=== PATIENT | female | born 1995 | race Caucasian/White ===

== ENCOUNTER 2018-01-08 10:29 | Emergency (ER) | payer MEDICAID ==
[~2018-01-08] VITALS: Ht 165.1 cm; Wt 52.0 kg
[2018-01-08 10:50] VITALS: BP 108/68
== END 2018-01-08 12:24 | disposition home or self-care (01) ==
LOC: ER 10:30
DX: F15.90 Other stimulant use, unspecified, uncomplicated (principal)
CPT/HCPCS: 99281

== ENCOUNTER 2018-02-24 05:44 | Emergency (ER) | payer MEDICAID ==
[~2018-02-24] VITALS: Ht 165.1 cm; Wt 59.0 kg
[~2018-02-24 05:44] MED LIST: METH4TAB81 PO; TRAZ-218 PO; TRIA15OI9 TOP
[2018-02-24 05:47] VITALS: BP 131/95
[2018-02-24 06:19] LABS: URINE HCG NEGATIVE (NEG)
[2018-02-24 06:28] LABS: CLARITY,URINE CLOUDY (Clear); COLOR,URINE BROWN (Yellow); GLUCOSE, URINE 250 mg/dl (Neg); KETONES,URINE TRACE mg/dl (Neg); LEUKOCYTE ESTERASE ,URINE SMALL (Neg); NITRITES, URINE POSITIVE (Neg); OCCULT BLOOD,URINE LARGE (Neg); PH,URINE 6.5 (4.8-8.0); PROTEIN,URINE >=300 mg/dl (Neg)
[2018-02-24 06:36] LABS: UA COLLECTION TYPE CLN CATCH MIDSTREAM
[2018-02-24 06:37] LABS: RBC,URINE TNTC /HPF (0-2); WBC,URINE TNTC /HPF (0-4)
[2018-02-24 06:39] LABS: BACTERIA,URINE 4+ /HPF (Neg); SQUAMOUS EPITHELIAL CELL,UR MANY /LPF (FEW)
[2018-02-24] MEDS ORDERED: PHEN-716 PO (06:39)
[2018-02-24] MEDS ORDERED: SULF1TAB49 PO (06:39)
[2018-02-24] MEDS ORDERED: sulfamethoxazole/trimethoprim DS (800/160mg) tablet PO ONE (06:40)
[2018-02-24] MEDS ORDERED: phenazopyridine 100mg tablet PO ONE (06:40)
== END 2018-02-24 07:03 | disposition home or self-care (01) ==
LOC: ER 05:45
DX: N39.0 Urinary tract infection, site not specified (principal); F15.90 Other stimulant use, unspecified, uncomplicated; Z79.899 Other long term (current) drug therapy
CPT/HCPCS: 81001; 81025; 99283

== ENCOUNTER 2018-10-11 17:14 | Emergency (ER) | payer MEDICAID ==
[~2018-10-11] VITALS: Ht 165.1 cm; Wt 64.0 kg
[~2018-10-11 17:14] MED LIST changes: +PHEN-716 PO
[2018-10-11 17:23] VITALS: BP 115/84
[2018-10-11 17:56] LABS: BASOPHILS % (AUTO) 0.2 % (0-1); EOSINOPHILS # (AUTO) 0.4 X10'3 (0-0.9); EOSINOPHILS % (AUTO) 2.8 % (0-6); HEMATOCRIT 39.4 % (35.0-45.0); HEMOGLOBIN 12.9 g/dl (12.0-16.0); LYMPHOCYTES # (AUTO) 2.1 X10'3 (1.1-4.8); LYMPHOCYTES % (AUTO) 14.7 % (21-51); MEAN CORPUSCULAR HEMOGLOBIN 26.7 PG (27.0-31.0); MEAN CORPUSCULAR HGB CONC 32.8 g/dL (33.0-36.5); MEAN CORPUSCULAR VOLUME 81.5 FL (78-98); MEAN PLATELET VOLUME 7.6 FL (7.4-10.4); MONOCYTES % (AUTO) 7.3 % (2-12); NEUTROPHILS # (AUTO) 10.6 X10'3 (1.8-7.7); PLATELET COUNT 354 X10'3 (140-440); RED BLOOD COUNT 4.83 X10'6 (4.20-5.60); RED CELL DISTRIBUTION WIDTH 13.3 % (11.5-14.5); WHITE BLOOD COUNT 14.1 X10'3 (4.5-11.0)
[2018-10-11 18:08] LABS: ALANINE AMINOTRANSFERASE 17 U/L (12-78); ALBUMIN 3.2 G/DL (3.4-5.0); ALBUMIN/GLOBULIN RATIO 0.9 (1.1-1.5); ALKALINE PHOSPHATASE 78 IU/L (46-116); ANION GAP 2 (8-16); ASPARTATE AMINO TRANSFERASE 11 U/L (10-37); BILIRUBIN,TOTAL 0.3 MG/DL (0.1-1.0); BLOOD UREA NITROGEN 13 MG/DL (7-18); BUN/CREATININE RATIO 16.5 (6.6-38.0); CALCIUM 8.2 MG/DL (8.5-10.1); CHLORIDE 103 MMOL/L (99-107); CREATININE 0.79 MG/DL (0.40-0.90); GLUCOSE 108 MG/DL (70-104); POTASSIUM 3.9 MMOL/L (3.5-5.1); SODIUM 136 MMOL/L (135-145); TOTAL CARBON DIOXIDE 31.3 MMOL/L (24-32); TOTAL PROTEIN 6.6 G/DL (6.4-8.2); eGFR 89 ML/MIN
[2018-10-11] MEDS ORDERED: LORazepam 2 mg/ml vial IV ONE (18:30)
[2018-10-11] MEDS ORDERED: ondansetron 4mg rapidly disintigrating tab PO ONE (18:30)
[2018-10-11 19:21] LABS: URINE HCG NEGATIVE (NEG)
[2018-10-11 19:29] LABS: CLARITY,URINE CLEAR (Clear); COLOR,URINE YELLOW (Yellow); GLUCOSE, URINE NEGATIVE (Neg); KETONES,URINE NEGATIVE (Neg); LEUKOCYTE ESTERASE ,URINE NEGATIVE (Neg); NITRITES, URINE NEGATIVE (Neg); OCCULT BLOOD,URINE NEGATIVE (Neg); PROTEIN,URINE NEGATIVE (Neg); UROBILINOGEN,URINE 0.2 E.U/dL (0.2-1.0)
[2018-10-11 19:34] LABS: UA COLLECTION TYPE CLN CATCH MIDSTREAM
[2018-10-11] MEDS ORDERED: ONDA4TAB6 PO (19:41)
[2018-10-11] MEDS ORDERED: LORA-269 PO (19:41)
== END 2018-10-11 20:11 | disposition home or self-care (01) ==
LOC: ER 17:15
DX: F41.9 Anxiety disorder, unspecified (principal); A08.39 Other viral enteritis; F15.90 Other stimulant use, unspecified, uncomplicated; Z79.899 Other long term (current) drug therapy
CPT/HCPCS: 36415; 80053; 81003; 81025; 85025; 96374; 99284; J2060; 99283

== ENCOUNTER 2018-10-16 20:32 | Emergency (ER) | payer MEDICAID ==
[~2018-10-16] VITALS: Ht 165.1 cm; Wt 55.9 kg
[~2018-10-16 20:32] MED LIST changes: +LORA-269 PO; +ONDA4TAB6 PO
[2018-10-16] MEDS ORDERED: mag hydrox/Alum hydrox/simeth 30ml oral suspension PO ONE (23:20)
[2018-10-16] MEDS ORDERED: famotidine 20mg tablet PO ONE (23:20)
[2018-10-16] MEDS ORDERED: LIDOcaine Viscous 15ml cup PO ONE (23:20)
[2018-10-16 23:34] LABS: BASOPHILS % (AUTO) 0.2 % (0-1); EOSINOPHILS # (AUTO) 0.9 X10'3 (0-0.9); EOSINOPHILS % (AUTO) 8.1 % (0-6); HEMATOCRIT 32.9 % (35.0-45.0); HEMOGLOBIN 10.9 g/dl (12.0-16.0); LYMPHOCYTES # (AUTO) 1.6 X10'3 (1.1-4.8); LYMPHOCYTES % (AUTO) 14.6 % (21-51); MEAN CORPUSCULAR HGB CONC 33.2 g/dL (33.0-36.5); MEAN CORPUSCULAR VOLUME 81.4 FL (78-98); MEAN PLATELET VOLUME 7.4 FL (7.4-10.4); MONOCYTES # (AUTO) 0.7 X10'3 (0-0.9); MONOCYTES % (AUTO) 6.2 % (2-12); NEUTROPHILS # (AUTO) 7.9 X10'3 (1.8-7.7); NEUTROPHILS % (AUTO) 70.9 % (42-75); PLATELET COUNT 300 X10'3 (140-440); RED BLOOD COUNT 4.04 X10'6 (4.20-5.60); RED CELL DISTRIBUTION WIDTH 13.4 % (11.5-14.5); WHITE BLOOD COUNT 11.2 X10'3 (4.5-11.0)
[2018-10-16 23:50] LABS: ALANINE AMINOTRANSFERASE 20 U/L (12-78); ALBUMIN 2.6 G/DL (3.4-5.0); ALBUMIN/GLOBULIN RATIO 0.9 (1.1-1.5); ALKALINE PHOSPHATASE 96 IU/L (46-116); ANION GAP 6 (8-16); ASPARTATE AMINO TRANSFERASE 13 U/L (10-37); BILIRUBIN,TOTAL 0.1 MG/DL (0.1-1.0); BLOOD UREA NITROGEN 12 MG/DL (7-18); BUN/CREATININE RATIO 14.8 (6.6-38.0); CALCIUM 8.2 MG/DL (8.5-10.1); CHLORIDE 106 MMOL/L (99-107); CREATININE 0.81 MG/DL (0.40-0.90); GLUCOSE 111 MG/DL (70-104); LIPASE 71 U/L (73-393); SODIUM 137 MMOL/L (135-145); TOTAL CARBON DIOXIDE 24.8 MMOL/L (24-32); TOTAL PROTEIN 5.4 G/DL (6.4-8.2); eGFR 87 ML/MIN
[2018-10-17] MEDS ORDERED: PANT-47 PO (00:25)
[2018-10-17 00:42] VITALS: BP 123/56
== END 2018-10-17 00:45 | disposition home or self-care (01) ==
LOC: ER 20:33
DX: K21.9 Gastro-esophageal reflux disease without esophagitis (principal); F15.90 Other stimulant use, unspecified, uncomplicated; Z79.899 Other long term (current) drug therapy
CPT/HCPCS: 36415; 80053; 83690; 85025; 99283

== ENCOUNTER 2019-03-25 14:31 | Emergency (ER) | payer MEDICAID ==
[~2019-03-25] VITALS: Ht 165.1 cm; Wt 58.0 kg
[~2019-03-25 14:31] MED LIST changes: +PANT-47 PO; -TRAZ-218 PO; +TRAZ-251 PO
[2019-03-25 14:51] VITALS: BP 121/81
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
[2019-03-25] MEDS ORDERED: CEPH-572 PO (15:27)
[2019-03-25] MEDS ORDERED: SULF1TAB49 PO (15:27)
== END 2019-03-25 15:47 | disposition home or self-care (01) ==
LOC: ER 14:32
DX: L03.116 Cellulitis of left lower limb (principal); F15.90 Other stimulant use, unspecified, uncomplicated; Z79.899 Other long term (current) drug therapy
CPT/HCPCS: 99283

== ENCOUNTER 2019-03-27 00:27 | Emergency (ER) | payer MEDICAID ==
[~2019-03-27] VITALS: Ht 165.1 cm; Wt 57.7 kg
[~2019-03-27 00:27] MED LIST changes: +CEPH-572 PO; +SULF1TAB49 PO
--- NOTE | 2019-03-27 01:50 | NUR ---
PT REPORTS SHE HAS BEEN WALKING ALOT SHE IS CURRENTLYL HOMELESS AND THAT SHE ONLY HAS BEEN WEARING SOCKS TODAY. SHE REPROTS THE SWELLING WAS WORSE YESTERDAY TO THE LEFT FOOT. THREE SHALLOW NON DRAINING ULCERS NOTED TO THE LATERAL ANKLE AREA OF LEFT FOOT AND FOOT IS SWOLLEN, +DP GOOD CSM.
[2019-03-27 04:00] VITALS: BP 125/80
== END 2019-03-27 04:58 | disposition left against medical advice (07) ==
LOC: ER 00:28
DX: M79.672 Pain in left foot (principal); Z53.21 Procedure and treatment not carried out due to patient leaving prior to being seen by health care provider

== ENCOUNTER 2019-11-19 10:00 | Emergency (ER) | payer MEDICAID ==
[~2019-11-19] VITALS: Ht 165.1 cm; Wt 61.4 kg
[~2019-11-19 10:00] MED LIST changes: -CEPH-572 PO; -SULF1TAB49 PO
--- NOTE | 2019-11-19 10:18 | NUR ---
Attempted IV access in the right AC unsuccessful, no complications at the site, no swelling or redness, dressing applied, no bleeding noted.
--- NOTE | 2019-11-19 10:29 | NUR ---
Discussed pt's status with edmd Caro. New orders received for Zofran and Ativan.
[2019-11-19] MEDS ORDERED: LORazepam 0.5 MG tablet PO ONE (10:30)
[2019-11-19] MEDS ORDERED: ondansetron 4mg rapidly disintigrating tab PO ONE ×2 (10:30→17:30)
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
[2019-11-19 11:05] LABS: BASOPHILS % (AUTO) 0.5 % (0-1); EOSINOPHILS # (AUTO) 0.1 X10'3 (0-0.9); EOSINOPHILS % (AUTO) 0.9 % (0-6); HEMATOCRIT 36.3 % (35.0-45.0); HEMOGLOBIN 11.9 g/dl (12.0-16.0); LYMPHOCYTES # (AUTO) 0.9 X10'3 (1.1-4.8); MEAN CORPUSCULAR HEMOGLOBIN 26.1 PG (27.0-31.0); MEAN CORPUSCULAR HGB CONC 32.8 g/dL (33.0-36.5); MEAN CORPUSCULAR VOLUME 79.7 FL (78-98); MEAN PLATELET VOLUME 7.8 FL (7.4-10.4); MONOCYTES # (AUTO) 0.4 X10'3 (0-0.9); MONOCYTES % (AUTO) 4.1 % (2-12); NEUTROPHILS # (AUTO) 9.3 X10'3 (1.8-7.7); NEUTROPHILS % (AUTO) 86.5 % (42-75); PLATELET COUNT 320 X10'3 (140-440); RED BLOOD COUNT 4.55 X10'6 (4.20-5.60); WHITE BLOOD COUNT 10.7 X10'3 (4.5-11.0)
[2019-11-19 11:23] LABS: ALANINE AMINOTRANSFERASE 18 U/L (12-78); ALBUMIN 3.7 G/DL (3.4-5.0); ALBUMIN/GLOBULIN RATIO 1.1 (1.1-1.5); ALKALINE PHOSPHATASE 69 IU/L (46-116); ANION GAP 12 (8-16); ASPARTATE AMINO TRANSFERASE 17 U/L (10-37); BILIRUBIN,TOTAL 0.8 MG/DL (0.1-1.0); BLOOD UREA NITROGEN 17 MG/DL (7-18); BUN/CREATININE RATIO 13.6 (6.6-38.0); CHLORIDE 107 MMOL/L (99-107); CREATININE 1.25 MG/DL (0.40-0.90); GLUCOSE 160 MG/DL (70-104); POTASSIUM 3.3 MMOL/L (3.5-5.1); SODIUM 142 MMOL/L (135-145); TOTAL CARBON DIOXIDE 22.9 MMOL/L (24-32); TOTAL PROTEIN 7.1 G/DL (6.4-8.2); eGFR 52 ML/MIN
[2019-11-19 11:25] LABS: ACETAMINOPHEN < 2.0 UG/ML (10-30); ETHANOL < 0.010 GM/DL (0.0-0.010)
[2019-11-19 12:39] LABS: CLARITY,URINE CLEAR (Clear); COLOR,URINE YELLOW (Yellow); GLUCOSE, URINE 250 mg/dl (Neg); KETONES,URINE NEGATIVE (Neg); LEUKOCYTE ESTERASE ,URINE NEGATIVE (Neg); NITRITES, URINE NEGATIVE (Neg); OCCULT BLOOD,URINE NEGATIVE (Neg); PROTEIN,URINE 30 mg/dl (Neg); URINE HCG NEGATIVE (NEG)
[2019-11-19 12:41] LABS: UA COLLECTION TYPE STRAIGHT CATH
[2019-11-19 12:49] LABS: BACTERIA,URINE FEW /HPF (Neg); MUCUS STRANDS MODERATE /LPF (Neg); SQUAMOUS EPITHELIAL CELL,UR FEW /LPF (FEW); WBC CLUMPS,URINE FEW /HPF (NEGATIVE)
[2019-11-19 12:50] LABS: COARSE GRANULAR CAST 0-3 /LPF (NEGATIVE); FINE GRANULAR CAST 0-3 /LPF (NEGATIVE); RBC,URINE 0-2 /HPF (0-2)
[2019-11-19 13:09] LABS: URINE AMPHETAMINE SCREEN POSITIVE (Neg); URINE BARBITUATE SCREEN NEGATIVE (Neg); URINE BENZODIAZEPINES SCREEN NEGATIVE (Neg); URINE CANNABINOID SCREEN POSITIVE (Neg); URINE COCAINE SCREEN POSITIVE (Neg); URINE METHADONE SCREEN NEGATIVE (Neg); URINE OPIATE SCREEN POSITIVE (Neg); URINE PHENCYCLIDINE SCREEN NEGATIVE (Neg)
--- NOTE | 2019-11-19 13:18 | NUR ---
Report given to TANYA Mast in preparation for pt transfer from [facility] to [facility] as pt just medically cleared pending psychosocial assessement on 1798.
--- NOTE | 2019-11-19 13:25 | NUR ---
Pt ambulated on her own, accompanied by this RN to [facility] with belongings. She is AOX4 and was cooperative.
--- NOTE | 2019-11-19 13:31 | NUR ---
assumed care of pt from Nori MARTÍNEZ, pt is resting quietly on bed
--- NOTE | 2019-11-19 14:10 | NUR ---
PACKET FAXED TO [facility]
--- NOTE | 2019-11-19 14:30 | NUR ---
pt is sleeping, easily arouseable, "I think I overdosed on heroin...I didn't want to kill myself...I am just sad", pt said her boyfriend is cheating on her, she rents a room, has no job, feels depressed and anxious, pt denies SI thoughts/plan at this time, waiting to be evaluated by [facility]. Pt also said her drug of choice is meth, last did meth yesterday
--- NOTE | 2019-11-19 16:23 | NUR ---
pt is sleeping, resp even and unlabored
--- NOTE | 2019-11-19 16:56 | NUR ---
pt is being evaluated by [facility], pt's father, Bharath Ivy, , called
[2019-11-19] MEDS ORDERED: NO HOME MEDS (16:58)
[2019-11-19 17:32] VITALS: BP 120/82
--- NOTE | 2019-11-19 17:41 | NUR ---
pt Juan Luis ramos aware and placed order for zofran
--- NOTE | 2019-11-19 18:05 | NUR ---
gave pt ice water, jello and crackers,
--- NOTE | 2019-11-19 18:33 | NUR ---
pt vance snack well, taxi will be here in 40 minutes, gave pt dinner tray
== END 2019-11-19 20:03 ==
LOC: ER 10:00
DX: T40.1X2A Poisoning by heroin, intentional self-harm, initial encounter (principal); R45.851 Suicidal ideations; F41.9 Anxiety disorder, unspecified; F12.90 Cannabis use, unspecified, uncomplicated; F15.90 Other stimulant use, unspecified, uncomplicated; Y92.89 Other specified places as the place of occurrence of the external cause
CPT/HCPCS: 36415; 80053; 80305; 80320; 80329; 81001; 81025; 84443; 85025; 99285

== ENCOUNTER 2020-06-23 00:12 | Emergency (ER) | payer MEDICAID, OTHER ==
[~2020-06-23] VITALS: Ht 165.1 cm; Wt 61.4 kg
[~2020-06-23 00:12] MED LIST changes: -LORA-269 PO; -METH4TAB81 PO; +NO HOME MEDS; -ONDA4TAB6 PO; -PANT-47 PO; -PHEN-716 PO; -TRAZ-251 PO; -TRIA15OI9 TOP
[2020-06-23] MEDS ORDERED: ALBUTEROL INHALER 1 PUFF/90 MCG INHALER IH PRN (00:40)
[2020-06-23] MEDS ORDERED: albuterol 2.5 MG/3 ML nebule NEB PRN (00:46)
[2020-06-23] MEDS ORDERED: albuterol 2.5 MG/3 ML nebule NEB ONE ×2 (01:05→01:20)
--- NOTE | 2020-06-23 01:06 | NUR ---
PT TO HAVE SVN TREATMENT, THEN DC. PLACED IN ROOM 17 FOR TREATMENT.
[2020-06-23] MEDS ORDERED: ALBU18HF2 INH (02:00)
[2020-06-23 02:08] VITALS: BP 142/56
== END 2020-06-23 02:12 | disposition home or self-care (01) ==
LOC: ER 00:12
DX: U07.1 COVID-19 (principal); R43.8 Other disturbances of smell and taste; R53.83 Other fatigue; R51.9 Headache, unspecified; F41.9 Anxiety disorder, unspecified; F17.200 Nicotine dependence, unspecified, uncomplicated; F12.90 Cannabis use, unspecified, uncomplicated; F15.90 Other stimulant use, unspecified, uncomplicated; F11.90 Opioid use, unspecified, uncomplicated; Z79.899 Other long term (current) drug therapy
CPT/HCPCS: 36415; 87635; 94640; 99283

== ENCOUNTER 2020-09-08 19:16 | Emergency (ER) | payer MEDICAID, OTHER ==
[~2020-09-08] VITALS: Ht 165.1 cm; Wt 61.4 kg
[~2020-09-08 19:16] MED LIST changes: +ALBU18HF2 INH
[2020-09-08 19:21] VITALS: BP 118/79
[2020-09-08] MEDS ORDERED: azithromycin 250mg tablet PO ONE (21:30)
[2020-09-08] MEDS ORDERED: CefTRIAXone 250MG IM Kit w/LIDOcaine IM ONE (21:30)
[2020-09-08] MEDS ORDERED: METR-159 PO (22:10)
[2020-09-08] MEDS ORDERED: VALA10002 PO (22:10)
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
== END 2020-09-08 22:27 | disposition home or self-care (01) ==
LOC: ER 19:17
DX: Z20.2 Contact with and (suspected) exposure to infections with a predominantly sexual mode of transmission (principal); A59.9 Trichomoniasis, unspecified; N89.8 Other specified noninflammatory disorders of vagina; R21 Rash and other nonspecific skin eruption; F41.9 Anxiety disorder, unspecified; F17.200 Nicotine dependence, unspecified, uncomplicated; F12.90 Cannabis use, unspecified, uncomplicated; F15.90 Other stimulant use, unspecified, uncomplicated; F11.90 Opioid use, unspecified, uncomplicated; Z79.899 Other long term (current) drug therapy; Z79.2 Long term (current) use of antibiotics
CPT/HCPCS: 36415; 86592; 87210; 87491; 87591; 96372; 99283; J0696; Q0112

== ENCOUNTER 2021-11-24 17:40 | Emergency (ER) | payer MEDICAID ==
[~2021-11-24] VITALS: Ht 165.1 cm; Wt 68.2 kg
[~2021-11-24 17:40] MED LIST changes: +VALA10002 PO
[2021-11-24 17:44] VITALS: BP 143/89
[2021-11-24] MEDS ORDERED: ONDA4TAB12 PO (18:07)
[2021-11-24] MEDS ORDERED: methadone 10mg tablet PO ONE (18:10)
[2021-11-24] MEDS ORDERED: ondansetron 4mg rapidly disintigrating tab PO ONE (18:10)
== END 2021-11-24 18:28 | disposition home or self-care (01) ==
LOC: ER 17:41
DX: O02.1 Missed abortion (principal); F41.9 Anxiety disorder, unspecified; F12.90 Cannabis use, unspecified, uncomplicated; F15.90 Other stimulant use, unspecified, uncomplicated; F11.90 Opioid use, unspecified, uncomplicated; Z3A.01 Less than 8 weeks gestation of pregnancy; Z79.2 Long term (current) use of antibiotics; Z79.899 Other long term (current) drug therapy
CPT/HCPCS: 99283

== ENCOUNTER 2022-01-19 15:38 | Emergency (ER) | payer MEDICAID ==
[~2022-01-19] VITALS: Ht 165.1 cm; Wt 70.9 kg
[~2022-01-19 15:38] MED LIST changes: +ONDA4TAB12 PO
[2022-01-19 15:43] VITALS: BP 107/70
== END 2022-01-19 19:34 | disposition home or self-care (01) ==
LOC: ER 15:39
DX: O46.8X2 Other antepartum hemorrhage, second trimester (principal); F17.210 Nicotine dependence, cigarettes, uncomplicated; F15.10 Other stimulant abuse, uncomplicated; F11.10 Opioid abuse, uncomplicated; F41.9 Anxiety disorder, unspecified; Z79.899 Other long term (current) drug therapy; Z3A.17 17 weeks gestation of pregnancy
CPT/HCPCS: 99282; 99284